=== PATIENT | female | born 1985 | race African-American/Black ===

== ENCOUNTER 2018-01-10 15:06 | Emergency (ER) | payer OTHER ==
[~2018-01-10] VITALS: Ht 172.7 cm; Wt 120.2 kg
[~2018-01-10 15:06] MED LIST: APAP500 PO; AUGMENTIN 875875 MG PO; COMPAZINE10 MG PO; FLEXERIL PO; FLONASE 0.05%50 MCG NASAL; IBUPROFEN 600600 M1 PO; NOHOMEMEDICATIONS; NORCO 5-325 TA1 EACH PO; NORFLEX100 MG PO; PENICILLIN VK500 M1 PO; PERCOCET 5-3251 EACH PO; PHENERGAN 25 MG25 M1 PO; PHENERGAN25 M2 RC; PREDNISONE 20 M20 MG PO; PRENATAL PO; PREVACID 30MG C30 M1 PO; TESSALON PERLE100 MG PO; TRAMADOL 50 MG50 MG PO; VENTOLIN HFA 1818 GM INH; VICODIN 5-5001 EACH PO; ZPAK PO
[2018-01-10 15:56] LABS: URINE BILIRUBIN NEGATIVE (Negative); URINE BLOOD 2+ (Negative); URINE CLARITY CLEAR; URINE COLOR YELLOW; URINE GLUCOSE-RANDOM* NEGATIVE (Negative); URINE KETONES NEGATIVE (Negative); URINE LEUKOCYTES NEGATIVE (Negative); URINE NITRITE NEGATIVE (Negative); URINE PROTEIN (DIPSTICK) NEGATIVE (Negative); URINE UROBILINOGEN 0.2 E.U./dl (0.2-1.0)
[2018-01-10 16:12] LABS: BACTERIA 1-9 Few /HPF (None Seen); CASTS None Seen /LPF (None Seen); CRYSTALS None Seen /LPF (None Seen); SQUAMOUS 4-10 Moderate /LPF (0-3); URINE RBC 3-10 Few /HPF (0-2); URINE WBC 0-5 Rare /HPF (0-5); YEAST Present (None Seen)
[2018-01-10] MEDS ORDERED: DIFLUCAN150 MG PO (16:23)
[2018-01-10] MEDS ORDERED: FLONASE 0.05%50 MCG NASAL (16:23)
[2018-01-10] MEDS ORDERED: GUAIFENESIN-CODE5 ML PO (16:24)
[2018-01-10] MEDS ORDERED: PROAIR HFA8.5 GM INH (16:24)
== END 2018-01-10 16:53 | disposition home or self-care (01) ==
LOC: ER 15:06
PROVIDERS: Emergency Medicine
DX: R51 Headache (principal); J06.9 Acute upper respiratory infection, unspecified; J32.9 Chronic sinusitis, unspecified; B37.9 Candidiasis, unspecified; J45.909 Unspecified asthma, uncomplicated; E05.90 Thyrotoxicosis, unspecified without thyrotoxic crisis or storm

== ENCOUNTER 2018-09-26 17:22 | Emergency (ER) | payer OTHER ==
[~2018-09-26] VITALS: Ht 152.4 cm; Wt 117.9 kg
[~2018-09-26 17:22] MED LIST changes: +DIFLUCAN150 MG PO; +GUAIFENESIN-CODE5 ML PO; +PROAIR HFA8.5 GM INH
[2018-09-26] MEDS ORDERED: AMITRIPTYLINE H25 M2 PO (17:26)
== END 2018-09-26 19:11 | disposition home or self-care (01) ==
LOC: ER 17:22
DX: D17.39 Benign lipomatous neoplasm of skin and subcutaneous tissue of other sites (principal); J45.909 Unspecified asthma, uncomplicated; E05.90 Thyrotoxicosis, unspecified without thyrotoxic crisis or storm

== ENCOUNTER 2018-12-25 10:47 | Emergency (ER) | payer OTHER ==
[~2018-12-25] VITALS: Ht 172.7 cm; Wt 122.5 kg
[~2018-12-25 10:47] MED LIST changes: +AMITRIPTYLINE H25 M2 PO
[2018-12-25 12:21] VITALS: BP 142/90
== END 2018-12-25 12:21 | disposition left against medical advice (07) ==
LOC: ER 10:47
DX: Z53.21 Procedure and treatment not carried out due to patient leaving prior to being seen by health care provider (principal)

== ENCOUNTER 2019-03-02 01:18 | Emergency (ER) | payer OTHER ==
[~2019-03-02] VITALS: Ht 172.7 cm; Wt 122.5 kg
[2019-03-02 03:38] VITALS: BP 122/78
[2019-03-02] MEDS ORDERED: PREDNISONE 20 M20 M1 PO (03:46)
[2019-03-02] MEDS ORDERED: GUAIFEN-CODEINE10 ML PO (03:46)
== END 2019-03-02 04:45 | disposition home or self-care (01) ==
LOC: ER 01:18
DX: J06.9 Acute upper respiratory infection, unspecified (principal); J45.909 Unspecified asthma, uncomplicated; E03.9 Hypothyroidism, unspecified; G43.909 Migraine, unspecified, not intractable, without status migrainosus

== ENCOUNTER 2020-04-11 10:07 | Emergency (ER) | payer OTHER ==
[~2020-04-11] VITALS: Ht 172.7 cm; Wt 121.6 kg
[~2020-04-11 10:07] MED LIST changes: +GUAIFEN-CODEINE10 ML PO; +PREDNISONE 20 M20 M1 PO
[2020-04-11 10:58] LABS: URINE BILIRUBIN NEGATIVE (Negative); URINE BLOOD NEGATIVE (Negative); URINE CLARITY CLEAR; URINE COLOR YELLOW; URINE GLUCOSE-RANDOM* NEGATIVE (Negative); URINE KETONES NEGATIVE (Negative); URINE LEUKOCYTES-REFLEX NEGATIVE (Negative); URINE NITRITE-REFLEX NEGATIVE (Negative); URINE PROTEIN (DIPSTICK) NEGATIVE (Negative); URINE SPECIFIC GRAVITY 1.025 (1.005-1.035); URINE UROBILINOGEN 0.2 E.U./dl (0.2-1.0)
[2020-04-11] MEDS ORDERED: NAPROSYN500 MG PO (11:33)
[2020-04-11] MEDS ORDERED: TRAMADOL 50 MG50 MG PO (11:33)
[2020-04-11] MEDS ORDERED: NORFLEX100 MG PO (11:33)
[2020-04-11 11:49] VITALS: BP 115/82
== END 2020-04-11 11:50 | disposition home or self-care (01) ==
LOC: ER 10:07
PROVIDERS: Emergency Medicine
DX: M54.5 Low back pain (principal); J45.909 Unspecified asthma, uncomplicated; G43.909 Migraine, unspecified, not intractable, without status migrainosus; E05.90 Thyrotoxicosis, unspecified without thyrotoxic crisis or storm; Z79.899 Other long term (current) drug therapy; W01.0XXA Fall on same level from slipping, tripping and stumbling without subsequent striking against object, initial encounter; Y93.89 Activity, other specified; Y92.89 Other specified places as the place of occurrence of the external cause; Y99.8 Other external cause status